=== PATIENT | male | born 1975 | race Caucasian/White ===

== ENCOUNTER 2017-01-31 23:16 | Emergency (ER) | payer SELFPAY ==
[~2017-01-31] VITALS: Ht 180.3 cm; Wt 95.0 kg
[~2017-01-31 23:16] MED LIST: AMOX875 PO
[2017-01-31 23:18] VITALS: BP 143/85; PULSE 82; RESP 16; TEMP 98.2; O2SAT 100
[2017-01-31 23:48] LABS: BACTERIA, URINE RARE /hpf; BLOOD, URINE NEG (NEG); GLUCOSE,URINE NEG (NEG); KETONE, URINE NEG (NEG); MUCUS URINE FEW /lpf (OCC); NITRITE,URINE NEG (NEG); URINE COLOR YELLOW (YELLW/STRAW)
[2017-01-31 23:49] LABS: COMMENT (UR) CULTURE INDICATED; CULTURE IF INDICATED CULTURE INDICATED
[2017-02-01] MEDS ORDERED: cefTRIAXone 250 MG VIAL IM ONE (00:15)
[2017-02-01] MEDS ORDERED: LIDOCAINE HCL 1% 50 ML VIAL XX ONE (00:15)
[2017-02-01] MEDS ORDERED: AZITHROMYCIN 250 MG TAB PO ONE (00:15)
[2017-02-01] MEDS ORDERED: metroNIDAZOLE 500 MG TAB PO ONE (00:15)
[2017-02-01] MEDS ORDERED: ONDANSETRON ODT 4 MG TAB PO/SL ONE (00:15)
[2017-02-01] MEDS ORDERED: METO25TA6 PO (01:18)
[2017-02-01] MEDS ORDERED: CIPR500T2 PO (01:18)
--- NOTE | 2017-02-01 01:18 | PD ---
HPI Chief Complaint: Complaint Time Seen by Provider: 00:30 Travel History International Travel<30 days: No Contact w/Intl Traveler<30days: No Traveled to known affect area: No History of Present Illness HPI Patient is a 41-year-old male presenting to the emergency department evaluation of clear penile discharge for 1 day. He reports oral sex the other day as well as sexual intercourse approximately one month ago that was unprotected. He denies any fever, chills, nausea, vomiting. He reports suprapubic pressure but no pain. No other complaints at this time. He does report he is out of his metoprolol [facility] Past Medical History Blood Disorders: No Bipolar Disorder: Yes Heart Rhythm Problems: Yes Cancer: No Cardiac Catheterization: Yes Cardiovascular Problems: Yes (ARRYTHMIA) High Cholesterol: No Chest Pain: No Congestive Heart Failure: No Diabetes: No Diminished Hearing: No Endocrine: No GERD: Yes Genitourinary: No Hypertension: Yes Immune Disorder: No Implanted Vascular Access Dvce: No Psychiatric: Yes (Bipolar, Personality disorder) Reproductive: No Respiratory: No Immunizations Current: No Thyroid Disease: No Past Surgical History Other Surgery: Yes (back surgery) Social History Alcohol Use: No Tobacco Use: No (Quit 20 yrs ago) Substance Use: No Allergies-Medications (Allergen,Severity, Reaction): Coded Allergies: Abilify (Verified Allergy, Unknown, 02/01/17) Citalopram (Verified Allergy, Unknown, 02/01/17) Doxepin (Verified Allergy, Unknown, 02/01/17) Seroquel (Verified Allergy, Unknown, 02/01/17) Trazodone (Verified Allergy, Unknown, 02/01/17) Reported Meds & Prescriptions Reported Meds & Active Scripts Active Review of Systems Except as stated in HPI: all other systems reviewed are Neg Genitourinary: Positive: Dysuria, Dribbling, Pelvic Pain Physical Exam Narrative GENERAL: Well-nourished, well-developed patient. SKIN: Focused skin assessment warm/dry. HEAD: Normocephalic. EYES: No scleral icterus. No injection or drainage. NECK: Supple, trachea midline. No JVD or lymphadenopathy. CARDIOVASCULAR: Regular rate and rhythm without murmurs, gallops, or rubs. RESPIRATORY: Breath sounds equal bilaterally. No accessory muscle use. GASTROINTESTINAL: Abdomen soft, non-tender, nondistended. Positive bowel sounds , no rebound, no guarding. MUSCULOSKELETAL: No cyanosis, or edema. BACK: Nontender without obvious deformity. No CVA tenderness. Data Data Last Documented VS Vital Signs Date Time Temp Pulse Resp B/P Pulse Ox O2 Delivery O2 Flow Rate FiO2 01/31/17 23:18 98.2 82 16 143/85 100 Room Air Orders Urinalysis - C+S If Indicated (01/31/17 23:24) Gc And Chlamydia Pcr (01/31/17 23:25) Urine Culture (01/31/17 23:31) Azithromycin (Zithromax) (02/01/17 00:15) Ceftriaxone Inj (Rocephin Inj) (02/01/17 00:15) Metronidazole (Flagyl) (02/01/17 00:15) Ondansetron Odt (Zofran Odt) (02/01/17 00:15) Lidocaine 1% Inj (50 Ml) (Xylocaine 1% I (02/01/17 00:15) Gc And Chlamydia Pcr (02/01/17 01:03) Labs Laboratory Tests Test 01/31/17 23:31 Urine Color YELLOW Urine Turbidity CLEAR Urine pH 6.0 Urine Specific [place] 1.025 Urine Protein TRACE mg/dL Urine Glucose (UA) NEG mg/dL Urine Ketones NEG mg/dL Urine Occult Blood NEG Urine Nitrite NEG Urine Bilirubin NEG Urine Urobilinogen 2.0 MG/DL Urine Leukocyte Esterase MOD Urine RBC 16 /hpf Urine WBC 35 /hpf Urine Bacteria RARE /hpf Urine Mucus FEW /lpf Microscopic Urinalysis Comment CULTURE INDICATED MDM Medical Decision Making Medical Screen Exam Complete: Yes Emergency Medical Condition: Yes Interpretation(s) Vital Signs Date Time Temp Pulse Resp B/P Pulse Ox O2 Delivery O2 Flow Rate FiO2 01/31/17 23:18 98.2 82 16 143/85 100 Room Air Differential Diagnosis UTI versus STD versus epididymitis versus other Narrative Course Patient is a 41-year-old male presenting with 1 day of discharge from his penis. He has had unprotected sexual intercourse as well as oral sex. Patient' s vital signs are stable, urinalysis shows 16 RBCs, 35 wbc's, rare bacteria, few mucus and reflex culture is pending. Patient will be treated empirically with Rocephin, azithromycin and metronidazole. He'll be discharged home on ciprofloxacin. He was encouraged to maintain safe sexual practices. He was advised that he will be notified when GC and chlamydia result. He was advised that partner should be treated and/or tested based on pending results prior to any further sexual intercourse. Patient verbalized understanding of these instructions. Patient is stable for discharge. Diagnosis Primary Impression: Discharge from penis Additional Impressions: Urinary tract infection Qualified Code: N39.0 - Urinary tract infection with hematuria, site unspecified HTN (hypertension) Qualified Code: I10 - Essential hypertension Referrals: [facility] Primary Care Physician Patient Instructions: General Instructions, Hypertension (DC), Sexually Transmitted Diseases (ED), Urinary Tract Infection in Men (ED) Additional Instructions: Follow-up with a primary doctor or at the [facility] Complete full course of antibiotics as prescribed Do not drink alcohol for the next 48 hours as it can interact with metronidazole Return to emergency department for any new or worsening symptoms You will be notified with test results Med/Other Pt SpecificInfo: Prescription(s) given Scripts Ciprofloxacin 500 Mg [id number] Mg PO BID 3 Days Ref 0 Prov:Annabelle Alexandra 02/01/17 Metoprolol Succinate ER 24 HR 25 Mg Tab25 Mg PO DAILY #30 TAB Ref 0 Prov:Annabelle Alexandra 02/01/17 Disposition: 01 DISCHARGE HOME Condition: Stable Annabelle Alexandra Feb 01, 2017 01:18
[2017-02-01 01:23] LABS: CHLAMYDIA PCR NOT DETECTED (NOT DETECT); NEISSERIA PCR NOT DETECTED (NOT DETECT)
== END 2017-02-01 02:30 | disposition home or self-care (01) ==
LOC: NEPD 23:16
DX: N39.0 Urinary tract infection, site not specified (principal); I10 Essential (primary) hypertension; F31.9 Bipolar disorder, unspecified; K21.9 Gastro-esophageal reflux disease without esophagitis
CPT/HCPCS: 81001; 87086; 87491; 87591; 96372; 99284; J0696

== ENCOUNTER 2017-02-07 18:59 | Emergency (ER) | payer SELFPAY ==
[~2017-02-07] VITALS: Ht 180.3 cm; Wt 100.0 kg
[~2017-02-07 18:59] MED LIST changes: -AMOX875 PO; +CIPR500T2 PO; +METO25TA6 PO
[2017-02-07 19:01] VITALS: BP 137/75; PULSE 93; RESP 16; TEMP 97.8; O2SAT 100
[2017-02-07] MEDS ORDERED: ONDANSETRON HCL 4 MG/2 ML VIAL IVP ONE (20:30)
[2017-02-07] MEDS ORDERED: SODIUM CHLOR 0.9% 1000 ML INJ 1,000 ML IV ONE (20:30)
[2017-02-07] MEDS ORDERED: SODIUM CHLORIDE 0.9% FLUSH 10 ML FLUSH IVF PRN (20:30)
--- NOTE | 2017-02-07 20:36 | PD ---
HPI Chief Complaint: Abdominal Pain Time Seen by Provider: 20:33 Travel History International Travel<30 days: No Contact w/Intl Traveler<30days: No Traveled to known affect area: No History of Present Illness HPI Patient is a 41-year-old male presenting to emergency for evaluation of abdominal pain, burning with urination, pressure with urination, nausea and vomiting and diarrhea. Patient has not vomited since yesterday reports decreased oral intake secondary to feeling nauseated. Patient presented on 02/01 with urinary complaints and was treated empirically for STD secondary to having unprotected sex. Urine culture was negative, GC chlamydia were negative. PFSH Past Medical History Blood Disorders: No Bipolar Disorder: Yes Heart Rhythm Problems: Yes (occasional dysrhtymia) Cancer: No Cardiac Catheterization: Yes (x2) Cardiovascular Problems: Yes High Cholesterol: No Chest Pain: No Congestive Heart Failure: No Diabetes: No Diminished Hearing: No Endocrine: No GERD: Yes Genitourinary: No Hypertension: Yes Immune Disorder: No Implanted Vascular Access Dvce: No Psychiatric: Yes (Bipolar, Personality disorder) Reproductive: No Respiratory: Yes Immunizations Current: No Thyroid Disease: No Past Surgical History Other Surgery: Yes (back surgery) Social History Alcohol Use: No Tobacco Use: No (Quit 20+ yrs ago) Substance Use: No Allergies-Medications (Allergen,Severity, Reaction): Coded Allergies: Abilify (Verified Allergy, Unknown, 02/07/17) Citalopram (Verified Allergy, Unknown, 02/07/17) Doxepin (Verified Allergy, Unknown, 02/07/17) Seroquel (Verified Allergy, Unknown, 02/07/17) Trazodone (Verified Allergy, Unknown, 02/07/17) Reported Meds & Prescriptions Reported Meds & Active Scripts Active Zofran Odt (Ondansetron Odt) 4 Mg Tab 4 Mg SL Q6HR PRN Florastor (Saccharomyces Boulardii) 250 Mg Cap 250 Mg PO BID 10 Days Doxycycline Hyclate 100 Mg Cap 100 Mg PO BID Metoprolol Succinate ER 24 HR (Metoprolol Succinate) 25 Mg Tab 25 Mg PO DAILY Review of Systems Except as stated in HPI: all other systems reviewed are Neg Genitourinary: Positive: Urgency, Frequency, Dysuria, Pelvic Pain, Discharge ( clear) Physical Exam Narrative GENERAL: Well-developed, well-nourished, alert male. SKIN: Warm and dry. HEAD: Atraumatic. Normocephalic. EYES: Pupils equal and round. No scleral icterus. No injection or drainage. ENT: No nasal bleeding or discharge. Mucous membranes pink and moist. NECK: Trachea midline. No JVD. CARDIOVASCULAR: Regular rate and rhythm. RESPIRATORY: No accessory muscle use. Clear to auscultation. Breath sounds equal bilaterally. GASTROINTESTINAL: Abdomen soft, non-tender, nondistended. Hepatic and splenic margins not palpable. MUSCULOSKELETAL: Extremities without clubbing, cyanosis, or edema. No obvious deformities. GENITOURINARY: Circumcised. Testes descended bilaterally without evidence of rotation. Testes are tender to palpation bilaterally. No lesions or erythema. Clear urethral discharge. Cremasteric reflex present. NEUROLOGICAL: Awake and alert. No obvious cranial nerve deficits. Motor grossly within normal limits. Five out of 5 muscle strength in the arms and legs. Normal speech. PSYCHIATRIC: Appropriate mood and affect; insight and judgment normal. Data Data Last Documented VS Vital Signs Date Time Temp Pulse Resp B/P Pulse Ox O2 Delivery O2 Flow Rate FiO2 02/07/17 19:01 97.8 93 16 137/75 100 Room Air Orders Complete Blood Count With Diff (02/07/17 20:27) Comprehensive Metabolic Panel (02/07/17 20:27) Ua Includes Microscopic (02/07/17 20:27) Ondansetron Inj (Zofran Inj) (02/07/17 20:30) Sodium Chloride 0.9% Flush (Ns Flush) (02/07/17 20:30) Sodium Chlor 0.9% 1000 Ml Inj (Ns 1000 M (02/07/17 20:30) Doxycycline Inj (Vibramycin Inj) (02/07/17 20:45) Wound Culture And Gram Stain (02/07/17 21:53) Labs Laboratory Tests Test 02/07/17 02/07/17 20:00 21:00 White Blood Count 7.5 TH/MM3 Red Blood Count 4.60 MIL/MM3 Hemoglobin 13.8 GM/DL Hematocrit 40.2 % Mean Corpuscular Volume 87.3 FL Mean Corpuscular Hemoglobin 30.0 PG Mean Corpuscular Hemoglobin 34.4 % Concent Red Cell Distribution Width 13.5 % Platelet Count 198 TH/MM3 Mean Platelet Volume 9.4 FL Neutrophils (%) (Auto) 54.2 % Lymphocytes (%) (Auto) 35.2 % Monocytes (%) (Auto) 6.9 % Eosinophils (%) (Auto) 3.0 % Basophils (%) (Auto) 0.7 % Neutrophils # (Auto) 4.1 TH/MM3 Lymphocytes # (Auto) 2.6 TH/MM3 Monocytes # (Auto) 0.5 TH/MM3 Eosinophils # (Auto) 0.2 TH/MM3 Basophils # (Auto) 0.1 TH/MM3 CBC Comment DIFF FINAL Differential Comment Sodium Level 139 MEQ/L Potassium Level 3.9 MEQ/L Chloride Level 107 MEQ/L Carbon Dioxide Level 27.0 MEQ/L Anion Gap 5 MEQ/L Blood Urea Nitrogen 14 MG/DL Creatinine 0.86 MG/DL Estimat Glomerular Filtration 98 ML/MIN Rate Random Glucose 90 MG/DL Calcium Level 8.9 MG/DL Total Bilirubin 0.3 MG/DL Aspartate Amino Transf 21 U/L (AST/SGOT) Alanine Aminotransferase 36 U/L (ALT/SGPT) Alkaline Phosphatase 77 U/L Total Protein 8.0 GM/DL Albumin 4.1 GM/DL Urine Color YELLOW Urine Turbidity HAZY Urine pH 5.5 Urine Specific [place] 1.025 Urine Protein TRACE mg/dL Urine Glucose (UA) NEG mg/dL Urine Ketones NEG mg/dL Urine Occult Blood NEG Urine Nitrite NEG Urine Bilirubin NEG Urine Urobilinogen LESS THAN 2.0 MG/DL Urine Leukocyte Esterase SMALL Urine RBC 11 /hpf Urine WBC 10 /hpf Urine Squamous Epithelial <1 /hpf Cells Urine Calcium Oxalate Crystals OCC /hpf Urine Mucus MOD /lpf MDM Medical Decision Making Medical Screen Exam Complete: Yes Emergency Medical Condition: Yes Medical Record Reviewed: Yes Interpretation(s) Vital Signs Date Time Temp Pulse Resp B/P Pulse Ox O2 Delivery O2 Flow Rate FiO2 02/07/17 19:01 97.8 93 16 137/75 100 Room Air Differential Diagnosis Epididymitis versus urethritis versus UTI versus other Narrative Course Patient is a 41-year-old male presenting with urinary symptoms as well as nausea and vomiting and diarrhea. He completed a course of outpatient antibiotics but continues to have symptoms. Urine culture was negative, he was negative for GC and chlamydia on the . We'll recheck urine, patient be given IV fluids, Zofran and doxycycline now. CBC, chemistry are unremarkable Urinalysis is again indicated a urinary tract infection, patient's presentation is most consistent with epididymitis. He will be treated with doxycycline for 10 days. He was given prescription for Zofran as well as florastor. Patient is encouraged follow-up with his primary doctor. He was encouraged to return to emergency department for any new or worsening symptoms. Patient verbalized understanding of these instructions. Patient is stable for discharge. Diagnosis Primary Impression: Epididymitis Referrals: Primary Care Physician Patient Instructions: Epididymitis (ED), General Instructions Additional Instructions: Follow-up with a primary care provider or at the [facility] Complete full course of antibiotics as prescribed Return to emergency department for any new or worsening symptoms Med/Other Pt SpecificInfo: Prescription(s) given Scripts Ibuprofen 800 Mg [id number] Mg PO Q6HR PRN (PAIN) #40 TAB Ref 0 Prov:Annabelle Alexandra 02/07/17 Ondansetron Odt (Zofran Odt)4 Mg Tab4 Mg SL Q6HR PRN (Nausea/Vomiting) #30 TAB Ref 0 Prov:Annabelle Alexandar 02/07/17 Saccharomyces Boulardii (Florastor)250 Mg [id number] Mg PO BID 10 Days Ref 0 Prov:Annabelle Alexandra 02/07/17 Doxycycline Hyclate 100 Mg [id number] Mg PO BID #20 CAP Ref 0 Prov:Annabelle Alexandra 02/07/17 Disposition: 01 DISCHARGE HOME Condition: Stable Annabelle Alexandra Feb 07, 2017 20:36
[2017-02-07] MEDS ORDERED: DOXYCYCLINE INJ 200 MG in SODIUM CHLOR 0.9% 250 ML INJ 250 ML IV ONE (20:45)
[2017-02-07 21:37] LABS: AUTOMATED NEUTROPHIL # 4.1 TH/MM3 (1.8-7.7); BASOPHIL # 0.1 TH/MM3 (0-0.2); BASOPHIL % 0.7 % (0.0-2.0); EOSINOPHIL # 0.2 TH/MM3 (0-0.4); HEMATOCRIT 40.2 % (39.0-51.0); HEMO FLAGS DIFF FINAL; LYMPH % 35.2 % (9.0-44.0); LYMPHOCYTE # 2.6 TH/MM3 (1.0-4.8); MEAN CELL VOLUME 87.3 FL (80.0-100.0); MEAN CORPUSCULAR HGB CONC 34.4 % (32.0-36.0); MONO % 6.9 % (0.0-8.0); NEUT % 54.2 % (16.0-70.0); PLATELET COUNT 198 TH/MM3 (150-450); RED CELL DISTRIBUTION WIDTH 13.5 % (11.6-17.2); WHITE BLOOD COUNT 7.5 TH/MM3 (4.0-11.0)
[2017-02-07 21:47] LABS: BLOOD, URINE NEG (NEG); CALCIUM OXALATE CRYSTALS,URINE OCC /hpf; GLUCOSE,URINE NEG (NEG); KETONE, URINE NEG (NEG); MUCUS URINE MOD /lpf (OCC); NITRITE,URINE NEG (NEG); PH, URINE 5.5 (5.0-8.5); SQUAMOUS EPITHELIAL CELL URINE <1 /hpf (0-5); URINE COLOR YELLOW (YELLW/STRAW)
[2017-02-07 21:52] LABS: ANION GAP 5 MEQ/L (5-15); AST (GOT) 21 U/L (15-37); BLOOD UREA NITROGEN 14 MG/DL (7-18); CHLORIDE 107 MEQ/L (98-107); GLOMERULAR FILTRATION RATE 98 ML/MIN (>89); POTASSIUM 3.9 MEQ/L (3.5-5.1); SODIUM (NA) 139 MEQ/L (136-145)
[2017-02-07 21:54] LABS: ALT (GPT) 36 U/L (12-78)
[2017-02-07 21:55] LABS: ALKALINE PHOSPHATASE 77 U/L (45-117); TOTAL BILIRUBIN ADULT 0.3 MG/DL (0.2-1.0)
[2017-02-07] MEDS ORDERED: ZOFR4TAB3 SL (21:56)
[2017-02-07] MEDS ORDERED: FLOR250C PO (21:56)
[2017-02-07] MEDS ORDERED: DOXY100C PO (21:56)
[2017-02-07] MEDS ORDERED: IBUP800T23 PO (22:02)
[2017-02-07 23:03] VITALS: BP 121/72
== END 2017-02-07 23:25 | disposition home or self-care (01) ==
LOC: NEPD 18:59
DX: N45.1 Epididymitis (principal); R30.0 Dysuria; R11.2 Nausea with vomiting, unspecified; R19.7 Diarrhea, unspecified; I10 Essential (primary) hypertension; Z86.59 Personal history of other mental and behavioral disorders; Z86.79 Personal history of other diseases of the circulatory system; Z87.19 Personal history of other diseases of the digestive system; Z87.09 Personal history of other diseases of the respiratory system
CPT/HCPCS: 80053; 81001; 85025; 86403; 87070; 96374; 96375; 99284; J2405; J7030; J7050; 87205

== ENCOUNTER 2017-08-15 01:52 | Emergency (ER) | payer SELFPAY ==
[~2017-08-15] VITALS: Ht 180.3 cm; Wt 97.0 kg
[~2017-08-15 01:52] MED LIST changes: -CIPR500T2 PO; +DOXY100C PO; +FLOR250C PO; +IBUP1TAB7 PO; +METO1TAB42 PO; -METO25TA6 PO; +ZOFR4TAB3 SL
[2017-08-15 02:00] VITALS: BP 141/72; PULSE 84; RESP 18; TEMP 98.2; O2SAT 98
--- NOTE | 2017-08-15 02:11 | PD ---
HPI Chief Complaint: Anxiety Time Seen by Provider: 02:03 Travel History International Travel<30 days: No Contact w/Intl Traveler<30days: No Traveled to known affect area: No History of Present Illness HPI The patient is a 42-year-old male who states around 9:30 smoked about $200 of cocaine. He states he feels anxious. He has some chest discomfort. He did not faint. He denies using any other drugs like crystal meth or any other medications along with a cocaine. PFSH Past Medical History Blood Disorders: No Bipolar Disorder: Yes Heart Rhythm Problems: Yes (occasional dysrhtymia) Cancer: No Cardiac Catheterization: Yes (x2) Cardiovascular Problems: Yes High Cholesterol: No Chest Pain: No Congestive Heart Failure: No Diabetes: No Diminished Hearing: No Endocrine: No GERD: Yes Genitourinary: No Hypertension: Yes Immune Disorder: No Implanted Vascular Access Dvce: No Musculoskeletal: Yes (back surgery x2) Neurologic: Yes Psychiatric: Yes (Bipolar, Personality disorder) Reproductive: No Respiratory: Yes Immunizations Current: No Thyroid Disease: No Tetanus Vaccination: < 5 Years Influenza Vaccination: No Past Surgical History Other Surgery: Yes (back surgery) Social History Alcohol Use: No Tobacco Use: No (Quit 20+ yrs ago) Substance Use: Yes (crack cocaine ) Allergies-Medications (Allergen,Severity, Reaction): Coded Allergies: aripiprazole (Unverified Allergy, Unknown, 08/15/17) citalopram (Unverified Allergy, Unknown, 08/15/17) doxepin (Unverified Allergy, Unknown, 08/15/17) quetiapine (Unverified Allergy, Unknown, 08/15/17) trazodone (Unverified Allergy, Unknown, 08/15/17) Reported Meds & Prescriptions Reported Meds & Active Scripts Active Ibuprofen 800 Mg Tab 800 Mg PO Q6HR PRN Zofran Odt (Ondansetron Odt) 4 Mg Tab 4 Mg SL Q6HR PRN Florastor (Saccharomyces Boulardii) 250 Mg Cap 250 Mg PO BID 10 Days Doxycycline Hyclate 100 Mg Cap 100 Mg PO BID Metoprolol Succinate ER 24 HR (Metoprolol Succinate) 25 Mg Tab 25 Mg PO DAILY Review of Systems Except as stated in HPI: all other systems reviewed are Neg Physical Exam Narrative GENERAL: The patient is slightly anxious, alert, oriented 3 in minimal apparent distress with his chest discomfort. His vital signs show blood pressure 141/72 but otherwise normal. The patient is anxious but he is cooperative. He does not appear clinically intoxicated. SKIN: Focused skin assessment warm/dry. No needle tracks nor wrist slash hooker are present. HEAD: Atraumatic. Normocephalic. EYES: Pupils equal and round. No scleral icterus. No injection or drainage. ENT: No nasal bleeding or discharge. Mucous membranes pink and moist. NECK: Trachea midline. No JVD. CARDIOVASCULAR: Regular rate and rhythm. No murmur appreciated. RESPIRATORY: No accessory muscle use. Clear to auscultation. Breath sounds equal bilaterally. GASTROINTESTINAL: Abdomen soft, non-tender, nondistended. Hepatic and splenic margins not palpable. MUSCULOSKELETAL: No obvious deformities. No clubbing. No cyanosis. No edema. NEUROLOGICAL: Awake and alert. No obvious cranial nerve deficits. Motor grossly within normal limits. Normal speech. PSYCHIATRIC: The patient appears anxious; insight and judgment normal. Data Data Last Documented VS Vital Signs Date Time Temp Pulse Resp B/P (MAP) Pulse Ox O2 Delivery O2 Flow Rate FiO2 08/15/17 02:00 98.2 84 18 141/72 (95) 98 Orders Orders Electrocardiogram (08/15/17 02:04) Complete Blood Count With Diff (08/15/17 02:04) Basic Metabolic Panel (Bmp) (08/15/17 02:04) Troponin I (08/15/17 02:04) Labs Laboratory Tests Test 08/15/17 02:09 White Blood Count 10.9 TH/MM3 Red Blood Count 4.90 MIL/MM3 Hemoglobin 14.2 GM/DL Hematocrit 43.4 % Mean Corpuscular Volume 88.7 FL Mean Corpuscular Hemoglobin 29.0 PG Mean Corpuscular Hemoglobin Concent 32.7 % Red Cell Distribution Width 12.4 % Platelet Count 208 TH/MM3 Mean Platelet Volume 8.8 FL Neutrophils (%) (Auto) 82.7 % Lymphocytes (%) (Auto) 13.0 % Monocytes (%) (Auto) 2.9 % Eosinophils (%) (Auto) 0.2 % Basophils (%) (Auto) 1.2 % Neutrophils # (Auto) 9.1 TH/MM3 Lymphocytes # (Auto) 1.4 TH/MM3 Monocytes # (Auto) 0.3 TH/MM3 Eosinophils # (Auto) 0.0 TH/MM3 Basophils # (Auto) 0.1 TH/MM3 CBC Comment AUTO DIFF Blood Urea Nitrogen 17 MG/DL Creatinine 0.96 MG/DL Random Glucose 94 MG/DL Calcium Level 8.8 MG/DL Sodium Level 139 MEQ/L Potassium Level 5.1 MEQ/L Chloride Level 108 MEQ/L Carbon Dioxide Level 21.6 MEQ/L Anion Gap 9 MEQ/L Estimat Glomerular Filtration Rate 86 ML/MIN Troponin I LESS THAN 0.02 NG/ML MDM Medical Decision Making Medical Screen Exam Complete: Yes Emergency Medical Condition: Yes Medical Record Reviewed: Yes Interpretation(s) The EKG shows sinus rhythm with a rate of [address] elevation or depression. The basic metabolic profile shows potassium of 5.1 and GFR of 86 but is otherwise normal. The troponin I is normal. The CBC is normal except for 83% neutrophils. Differential Diagnosis Cocaine abuse, anxiety reaction, drug seeking behavior to obtain benzodiazepine' s, acute coronary syndrome Narrative Course The patient has cocaine abuse by history, there is no evidence of heart damage. The patient is told to discontinue the cocaine. Additional Instructions: Discontinue cocaine, if you have any problems with this follow-up with [facility]. There is no evidence of heart damage tonight. Med/Other Pt SpecificInfo: No Change to Meds Disposition: 01 DISCHARGE HOME Condition: Stable Vik Vela MD Aug 15, 2017 02:11
[2017-08-15 02:30] LABS: AUTOMATED NEUTROPHIL # 9.1 TH/MM3 (1.8-7.7); BASOPHIL # 0.1 TH/MM3 (0-0.2); BASOPHIL % 1.2 % (0.0-2.0); EOSINOPHIL % 0.2 % (0.0-4.0); HEMATOCRIT 43.4 % (39.0-51.0); HEMOGLOBIN 14.2 GM/DL (13.0-17.0); LYMPHOCYTE # 1.4 TH/MM3 (1.0-4.8); MEAN CELL VOLUME 88.7 FL (80.0-100.0); MEAN CORPUSCULAR HGB CONC 32.7 % (32.0-36.0); MEAN PLATELET VOLUME 8.8 FL (7.0-11.0); MONO % 2.9 % (0.0-8.0); MONOCYTE # 0.3 TH/MM3 (0-0.9); NEUT % 82.7 % (16.0-70.0); PLATELET COUNT 208 TH/MM3 (150-450); RED CELL DISTRIBUTION WIDTH 12.4 % (11.6-17.2); WHITE BLOOD COUNT 10.9 TH/MM3 (4.0-11.0)
[2017-08-15 02:33] LABS: CHLORIDE 108 MEQ/L (98-107); SODIUM (NA) 139 MEQ/L (136-145)
[2017-08-15 02:35] LABS: CALCIUM 8.8 MG/DL (8.5-10.1)
[2017-08-15 02:36] LABS: BICARBONATE 21.6 MEQ/L (21.0-32.0); BLOOD UREA NITROGEN 17 MG/DL (7-18); GLUCOSE,RANDOM 94 MG/DL (74-106)
[2017-08-15 02:39] LABS: CREATININE 0.96 MG/DL (0.60-1.30); GLOMERULAR FILTRATION RATE 86 ML/MIN (>89)
[2017-08-15 02:44] LABS: TROPONIN I LESS THAN 0.02 NG/ML (0.02-0.05)
[2017-08-15 03:29] VITALS: BP 145/88; PULSE 75; RESP 16; TEMP 98.3; O2SAT 98
--- NOTE | 2017-08-15 12:54 | EKG ---
Date Performed: 08/15/2017 Time Performed: 02:04:25 PTAGE: 42 years EKG: Sinus rhythm MARKED LEFT AXIS DEVIATION ABNORMAL ECG INTERPRETATION BASED ON A DEFAULT AGE OF 41 YEARS Compared t o the PREVIOUS TRACING from 04/26/15, no significant change DOCTOR: Marbin Bae Interpretating Date/Time 08/15/2017 12:52:10
== END 2017-08-15 03:34 | disposition home or self-care (01) ==
LOC: PHED 01:52
DX: F14.10 Cocaine abuse, uncomplicated (principal); R94.31 Abnormal electrocardiogram [ECG] [EKG]; F31.9 Bipolar disorder, unspecified; I10 Essential (primary) hypertension; K21.9 Gastro-esophageal reflux disease without esophagitis; Z87.891 Personal history of nicotine dependence
CPT/HCPCS: 80048; 84484; 85025; 93005